=== PATIENT | male | born 1990 | race Hispanic/Latino ===

== ENCOUNTER 2017-09-09 13:18 | Emergency (ER) | payer OTHER | END 2017-09-09 14:43 | disposition home or self-care (01) | LOC: EDH 13:18 | DX: E11.649 Type 2 diabetes mellitus with hypoglycemia without coma (principal); J45.909 Unspecified asthma, uncomplicated; Z88.1 Allergy status to other antibiotic agents; Z88.6 Allergy status to analgesic agent; Z88.8 Allergy status to other drugs, medicaments and biological substances | CPT/HCPCS: 82948 ==

== ENCOUNTER 2017-11-09 14:39 | Emergency (ER) | payer OTHER ==
[2017-11-09] MEDS ORDERED: ACETAMINOPHEN EXTRA STRENGTH 500 MG TABLET ONE (15:06)
[2017-11-09 15:15] LABS: APPEARANCE,URINE Clear (CLEAR); BILIRUBIN,URINE Negative (NEGATIVE); COLOR,URINE Yellow (YELLOW); GLUCOSE, URINE (UA) Negative (NEGATIVE); KETONES,URINE Negative (NEGATIVE); LEUKOCYTE ESTERASE ,URINE Negative (NEGATIVE); NITRATE,URINE Negative (NEGATIVE); OCCULT BLOOD,URINE Negative (NEGATIVE); PH,URINE 6.5 (5.0-8.0); PROTEIN,URINE Negative (NEGATIVE)
== END 2017-11-09 16:31 | disposition home or self-care (01) ==
LOC: EDH 14:39
DX: I86.1 Scrotal varices (principal); N50.811 Right testicular pain; J45.909 Unspecified asthma, uncomplicated; E11.9 Type 2 diabetes mellitus without complications; Z88.1 Allergy status to other antibiotic agents; Z88.8 Allergy status to other drugs, medicaments and biological substances
CPT/HCPCS: 76870; 81003

== ENCOUNTER 2019-03-23 06:25 | Emergency (ER) | payer OTHER ==
[2019-03-23] MEDS ORDERED: ACETAMINOPHEN EXTRA STRENGTH 500 MG TABLET ONE (06:33)
[2019-03-23 07:27] LABS: RAPID GROUP A STREP NEGATIVE (NEGATIVE)
[2019-03-23] MEDS ORDERED: SODIUM CHLORIDE 0.9% 1000ML 1,000 ML IV ONE (07:38)
[2019-03-23] MEDS ORDERED: KETOROLAC TROMETHAMINE 30MG/ML ONE (07:38)
[2019-03-23] MEDS ORDERED: ONDANSETRON HCL 4 MG/2 ML VIAL ONE (07:38)
[2019-03-23 08:00] LABS: POTASSIUM 3.7 mmol/L (3.5-5.1)
[2019-03-23 08:06] LABS: ALBUMIN 3.5 g/dL (3.5-5.0); BILIRUBIN,TOTAL 0.9 mg/dL (0.2-1.0); TOTAL PROTEIN, SERUM 7.1 g/dL (6.0-8.3)
[2019-03-23 08:08] LABS: BASOPHILS % (AUTO) 0.4 % (0.0-5.0); EOSINOPHILS % (AUTO) 0.2 % (0.0-8.0); HEMATOCRIT 38.4 % (42-54); LYMPHOCYTES % (AUTO) 14.2 % (21.0-51.0); MEAN CORPUSCULAR HGB CONC 34.2 g/dL (32.0-36.0); MEAN CORPUSCULAR VOLUME 90.5 fL (79-99); NEUTROPHILS % (AUTO) 73.2 % (40.0-77.0); PLATELET COUNT (AUTO) 106 K/uL (130-400); RED BLOOD CELL COUNT(AUTO) 4.24 MIL/uL (4.50-6.20); RED CELL DISTRIBUTION WIDTH 13.3 % (11.0-15.5); WHITE BLOOD COUNT (AUTO) 3.5 K/uL (4.8-10.8)
[2019-03-23] MEDS ORDERED: IOHEXOL-350 50ML VIAL IV ONE (08:43)
[2019-03-23] MEDS ORDERED: CLINDAMYCIN 600 MG/D5% WATER 50 ML IV ONE (10:41)
== END 2019-03-23 11:32 | disposition home or self-care (01) ==
LOC: EDH 06:25
DX: I88.8 Other nonspecific lymphadenitis (principal); R50.9 Fever, unspecified; D61.818 Other pancytopenia; F41.9 Anxiety disorder, unspecified; J45.909 Unspecified asthma, uncomplicated; E11.9 Type 2 diabetes mellitus without complications; Z88.1 Allergy status to other antibiotic agents; Z88.8 Allergy status to other drugs, medicaments and biological substances; Z79.2 Long term (current) use of antibiotics
CPT/HCPCS: 36415; 70491; 80053; 85025; 86701; 87390; 87804 ×2; 87880; 96365; 96375; 99285; J1885; J2405; J3490; J7030; Q9967

== ENCOUNTER 2019-09-22 04:49 | Emergency (ER) | payer OTHER ==
[2019-09-22] MEDS ORDERED: ACETAMINOPHEN EXTRA STRENGTH 500 MG TABLET ONE (05:40)
[2019-09-22] MEDS ORDERED: DEXAMETHASONE SOD PHOSPHATE 10MG/ML 1ML VIAL ONE (05:40)
[2019-09-22] MEDS ORDERED: IBUPROFEN 800 MG TAB ONE (05:40)
[2019-09-22] MEDS ORDERED: ONDANSETRON ODT 4 MG TAB ONE (05:41)
[2019-09-22] MEDS ORDERED: IPRATROPIUM/ALBUTEROL SULFATE 3 ML SOLUTION IH ONE (05:53)
== END 2019-09-22 07:19 | disposition home or self-care (01) ==
LOC: EDH 04:49
DX: J11.1 Influenza due to unidentified influenza virus with other respiratory manifestations (principal); J45.21 Mild intermittent asthma with (acute) exacerbation; Z88.1 Allergy status to other antibiotic agents; Z88.0 Allergy status to penicillin; F41.9 Anxiety disorder, unspecified
CPT/HCPCS: 71046; 94640; 96372; 99284; J1100